=== PATIENT | female | born 1940 | race Caucasian/White ===

== ENCOUNTER → 2017-08-24 | Outpatient (CLI) | payer MEDICARE ==
[~2017-08-24] MED LIST: ALPR.25; BUSP10 PO; CHLO5 PO; LISI20 PO; OMEPRAZOLE MAGN20 MG PO; SUCR1 PO; TRAM50 PO
== END | disposition home or self-care (01) ==
LOC: LAB SHORT 16:11 → LAB EV 16:11
DX: H60.92 Unspecified otitis externa, left ear (principal)
CPT/HCPCS: 87070; 87205

== ENCOUNTER 2017-09-08 08:24 | Day surgery (SDC) | payer MEDICARE ==
[~2017-09-08] VITALS: Ht 167.6 cm; Wt 72.8 kg
== END 2017-09-08 10:13 | disposition home or self-care (01) ==
LOC: ORSCSDS 08:24
PROVIDERS: Anesthesiology
PROC: 3E0R33Z Introduction of Anti-inflammatory into Spinal Canal, Percutaneous Approach (ICD-10-PCS; principal; 2017-09-08 09:30)
DX: M54.16 Radiculopathy, lumbar region (principal); I10 Essential (primary) hypertension; F41.8 Other specified anxiety disorders; Z87.891 Personal history of nicotine dependence; Z79.899 Other long term (current) drug therapy
CPT/HCPCS: J1040

== ENCOUNTER 2017-11-18 10:30 | Day surgery (SDC) | payer MEDICARE ==
[~2017-11-18] VITALS: Ht 167.6 cm; Wt 161.6 kg
[~2017-11-18 10:30] MED LIST changes: +CALCITRATE200 MG; +CRINONE1.125 GM; +FISH OIL 1,0001 EAC2; +GLUCOSAMINE HC500 MG; +NITR100; +TOCO1000
== END 2017-11-18 11:50 | disposition home or self-care (01) ==
LOC: ORSCSDS 10:30
PROVIDERS: Anesthesiology
PROC: 3E0R33Z Introduction of Anti-inflammatory into Spinal Canal, Percutaneous Approach (ICD-10-PCS; principal; 2017-11-18 11:30)
DX: M54.16 Radiculopathy, lumbar region (principal); M54.5 Low back pain; I10 Essential (primary) hypertension; F41.8 Other specified anxiety disorders; Z87.891 Personal history of nicotine dependence; Z79.899 Other long term (current) drug therapy
CPT/HCPCS: J1040; J2001

== ENCOUNTER → 2024-01-09 | Outpatient (CLI) | payer MEDICARE ==
[2024-01-09 12:38] LABS: Source, Urine Voided
[2024-01-09 14:16] LABS: Appearance, Urine Hazy (Clear); Bilirubin, Urine Neg (Neg); Blood, Urine 1+ (Neg); Color, Urine Yellow (P-Yellow); Glucose Qualitative, Urine Neg (Neg); Ketones, Urine Neg (Neg); Leukocyte Esterase, Urine 3+ (Neg); Nitrite, Urine Neg (Neg); Protein, Urine 1+ (Neg); Urobilinogen, Urine NORM (Normal)
[2024-01-09 14:31] LABS: Bacteria Many /hpf; Red Blood Cells, Urine 0-2 /hpf (0-2); Squamous Epithelial Cells Few /hpf (Few); Triple Phosphate Crystals Rare /hpf; White Blood Cells, Urine TNTC /hpf (0-5)
[2024-01-09 14:36] LABS: Potassium, Urine, Random 36.6 mmol/L (12.0-75.0); Protein, Urine Random 17.3 mg/dL (0.0-11.9); Protein/Creat Ratio, Ur Random 0.2
== END | disposition home or self-care (01) ==
LOC: LAB SHORT 12:35 → LAB 12:35
PROVIDERS: Internal Medicine Nephrology
DX: N18.4 Chronic kidney disease, stage 4 (severe) (principal)
CPT/HCPCS: 81001; 82570; 84133; 84156; 87077; 87086; 87186

== ENCOUNTER → 2024-07-08 | Outpatient (CLI) | payer MEDICARE ==
[2024-07-08 11:46] LABS: Source, Urine Voided
[2024-07-08 13:20] LABS: Bacteria Rare /hpf; Red Blood Cells, Urine Not Seen /hpf (0-2); Squamous Epithelial Cells Rare /hpf (Few); White Blood Cells, Urine 0-2 /hpf (0-5)
[2024-07-08 13:22] LABS: Creatinine, Urine Random 33.5 mg/dL (27.00-270.00); Protein, Urine Random 7.6 mg/dL (0.0-11.9); Protein/Creat Ratio, Ur Random 0.2
== END ==
LOC: LAB SHORT 09:30 → LAB 09:30
PROVIDERS: Internal Medicine Nephrology
DX: N18.31 Chronic kidney disease, stage 3a (principal); N18.4 Chronic kidney disease, stage 4 (severe)
CPT/HCPCS: 81015; 82570; 84156